=== PATIENT | male | born 1970 | race Caucasian/White ===

== ENCOUNTER 2018-06-20 12:21 | Day surgery (SDC) | payer OTHER ==
[2018-06-20] MEDS ORDERED: ceFAZolin 2 GM/DEXTROSE 100 ML IV ONE (12:29)
[2018-06-20] MEDS ORDERED: LR 1,000 ML IV ONE (12:30)
[2018-06-20] MEDS ORDERED: MIDAZOLAM 2 MG/2 ML VIAL IVP ONE (13:11)
--- NOTE | 2018-06-20 13:11 | PDANEPAE ---
ANE History of Present Illness 5th MPJ arthrotomy, cyst excision ANE Past Medical History - Cardiovascular History Hx Hypertension: No Hx Arrhythmias: No Hx Chest Pain: No Hx Coronary Artery / Peripheral Vascular Disease: No Hx CHF / Valvular Disease: No Hx Palpitations: No - Pulmonary History Hx COPD: No Hx Asthma/Reactive Airway Disease: No Hx Recent Upper Respiratory Infection: No Hx Oxygen in Use at Home: No Hx Sleep Apnea: No Sleep Apnea Screening Result - Last Documented: Negative - Neurologic History Hx Cerebrovascular Accident: No Hx Seizures: No Hx Dementia: No - Endocrine History Hx Diabetes: No - Renal History Hx Renal Disorders: No - Liver History Hx Hepatic Disorders: No - Neurological & Psychiatric Hx Hx Neurological and Psychiatric Disorders: No - Cancer History Hx Cancer: No - Congenital Disorder History Hx Congenital Disorders: No - GI History Hx Gastrointestinal Disorders: No - Other Health History Other Health History: GOUT - Chronic Pain History Chronic Pain: No - Surgical History Prior Surgeries: RT FOOT REMVL BONE SPUR ANE Review of Systems Review of systems is: negative Review of Systems: - Exercise capacity METS (RN): 6 METS ANE Patient History - Allergies Allergies/Adverse Reactions: prednisone Allergy (Verified 06/09/18 15:15) BODY/JOINT ACHING - Home Medications Home medications: home medication list seen and reviewed Home Medications: NK [No Known Home Meds] 06/09/18 [Last Taken Unknown] - NPO status NPO Since - Liquids (Date): 06/20/18 NPO Since - Liquids (Time): 09:00 NPO Since - Solids (Date): 06/19/18 NPO Since - Solids (Time): 21:00 - Anes Hx Anes Hx: no prior problems - Smoking Hx Smoking Status: Former smoker - Family Anes Hx Family Anes Hx: none ANE Labs/Vital Signs - Vital Signs Vital Signs: reviewed preoperatively; see RN documention for details Height: 175.26 cm Weight: 74.843 kg ANE Physical Exam - Airway Neck exam: FROM Mallampati Score: Class 1 Mouth exam: normal dental/mouth exam - Pulmonary Pulmonary: no respiratory distress - Cardiovascular Cardiovascular: regular rate and rhythym - ASA Status ASA Status: I ANE Anesthesia Plan Total IV Anesthesia: Yes
[2018-06-20] MEDS ORDERED: BUPIVACAINE 0.5% 30 ML SDV ONE (13:50)
--- NOTE | 2018-06-20 13:50 | PDHPUP ---
History & Physical Update H&P update statement: This history and physical update is based on an assessment of the patient which was completed after admission or registration (within 24 hours), but prior to the surgery/procedure. H&P update: H&P reviewed & patient examined, no change in patient's condition since H&P completed
[2018-06-20] MEDS ORDERED: BACITRACIN 50,000 UNITS/10 ML SYR IRR ONE (13:51)
[2018-06-20] MEDS ORDERED: PROPOFOL/EMULSION 500 MG/50 ML BOTTLE IV ONE ×2 (14:11→14:34)
[2018-06-20] MEDS ORDERED: LIDOCAINE 2% 100 MG/5 ML SYR ONE (14:11)
[2018-06-20] MEDS ORDERED: HYDROmorphONE/DILAUDID 2 MG/ML INJ IVP PRN (15:07)
[2018-06-20] MEDS ORDERED: PROMETHAZINE HCL 25 MG/ML INJ IVP PRN (15:07)
[2018-06-20] MEDS ORDERED: fentaNYL 100 MCG/2 ML INJ IVP PRN (15:07)
[2018-06-20] MEDS ORDERED: oxyCODONE IR 5 MG TAB PO PRN (15:07)
[2018-06-20] MEDS ORDERED: HYDROCODONE/APAP 5/325 TAB PO PRN (15:07)
[2018-06-20] MEDS ORDERED: ONDANSETRON 4 MG/2 ML VIAL IVP PRN ×2 (15:07→15:17)
[2018-06-20] MEDS ORDERED: MEPERIDINE 25 MG/0.5 ML AMP IVP PRN (15:07)
[2018-06-20] MEDS ORDERED: NALOXONE HCL 0.4 MG/ML INJ IVP PRN (15:07)
--- NOTE | 2018-06-20 15:07 | POSTANESTH ---
Post Anesthetic Evaluation Cardiovascular Status: Normal, Stable, Similar to Pre-Op Cond Respiratory Status: Normal, Stable, Similar to Pre-op Cond. Level of Consciousness/Mental Status: Can Participate in Eval, Moderately Sleepy Pain Control: Adequate, Prn Tx Ordered Nausea/Vomiting Control: Adequate, Prn Tx Ordered Complications Possibly Related to Anesthesia: None Noted
[2018-06-20] MEDS ORDERED: OXYCODONE/APAP 5/325 TAB PO PRN (15:17)
[2018-06-20] MEDS ORDERED: PHENYLEPHRINE HCL 100 MCG/ML SYR ONE (15:18)
[2018-06-20 18:01] VITALS: BP 130/86
--- NOTE | 2018-06-21 13:52 | GOP ---
[f rep st] OPERATIVE REPORT DATE OF OPERATION: 06/20/2018 SURGEON: Jayesh Frias DPM CEMENTER MACHINE: None. ANESTHESIA: MAC with local, 20 mL of 0.5% Marcaine plain. PREOPERATIVE DIAGNOSIS: 1. Soft tissue mass, right foot. 2. Benign bone cyst, right foot. 3. Loose body in joint, right foot. POSTOPERATIVE DIAGNOSIS: 1. Soft tissue mass, right foot. 2. Benign bone cyst, right foot. 3. Loose body in joint, right foot. PROCEDURE PERFORMED: FINDINGS: Consistent with diagnosis. SPECIMENS: Soft tissue mass, right foot sent to Pathology. ESTIMATED BLOOD LOSS: Zero. DESCRIPTION OF PROCEDURE: SURGEON: Jayesh Frias DPM. PROCEDURE: 1. Excision, soft tissue mass, right foot. 2. Curettage of bone cyst with bone graft, right foot. 3. Arthrotomy, 5th metatarsophalangeal joint with excision of loose bodies, right foot. HEMOSTASIS: Right pneumatic ankle tourniquet inflated to 250 mmHg for 32 minutes. MATERIALS: Cancellous bone chips, 3-0, 5-0 Vicryl. INJECTABLES: None. CONDITION: Stable. INDICATION FOR PROCEDURE: Patient with long-standing history of pain in the right foot. MRI demonst rates bone cyst, as well as soft tissue mass within the right foot. Patient has elected to undergo s urgical intervention at this time. PROCEDURE: After identification, patient brought to the operating room, placed on the operating tabl e in the supine position. Following IV sedation, local anesthesia obtained around the patient's righ t foot utilizing a total of 20 mL of 0.5% Marcaine plain. The foot was then scrubbed, and prepped, a nd draped in the usual aseptic manner. Pneumatic ankle tourniquet was placed around the patient's ri t ankle with ample Webril padding. Esmarch bandage utilized to exsanguinate the patient's right lo wer extremity. The pneumatic ankle tourniquet was then inflated. Attention was directed to the lateral aspect of the patient's right foot where a 4 cm linear longitud inal incision was made at the lateral aspect of the 5th metatarsophalangeal joint. This incision was deepened through the subcutaneous tissue with care being taken to identify and retract all vital brandin ral and vascular structures. Bleeders were ligated and cauterized as necessary. A large soft tissue mass measuring approximately 2 cm x 1 cm exists within the 5th metatarsophalangeal joint capsule and surrounding soft tissue. This mass is white and chalky in nature. This mass was excised completely and passed from the operative field. This will be sent to Pathology for evaluation. It is noted th at extensive joint capsule loss was sustained during excision of this soft tissue mass, which has carmen wn into the joint capsule. Attention was then directed to the 5th metatarsophalangeal joint where a linear capsulotomy was perfo rmed at the lateral aspect of the 5th metatarsophalangeal joint. Capsular structures were reflected dorsally and plantarly thus exposing the 5th metatarsophalangeal joint at the operative site. Severa l loose bodies exist within the 5th metatarsophalangeal joint, which seem to be either gouty tophi or calcium deposits. These were excised and passed from the operative field. The joint was flushed wi th normal sterile saline solution. Attention was then directed to the 5th metatarsal head through the original skin incision where a lar ge bone cyst was noted on the MRI. The lateral cortex of the 5th metatarsal head is punctured with a [place], thus exposing this large void which is filled with serous fluid. This void was then flushed with normal sterile saline solution. Cancellous bone chips were then packed into this void completel y to serve as a bone allograft. The incision was then flushed with normal sterile saline solution. Capsular structures were then closed around the 5th metatarsophalangeal joint using 3-0 Vicryl, subcu taneous tissue reapproximated using 3-0 Vicryl and skin reapproximated using 5-0 Vicryl in a running subcuticular suture technique. Incision site dressed with Steri-Strips, Miramontes silk, 4 x 4 gauze, Web ril, Najma, Wade bandage. Patient transferred to the postop recovery room with vital signs stable and vascular status intact to the right foot. Patient tolerated procedure and anesthesia well. /[id number]/MODL
== END 2018-06-20 18:14 | disposition home or self-care (01) ==
LOC: FSGY 12:21
PROVIDERS: ATTEND Podiatrist
DX: M1A.9XX1 Chronic gout, unspecified, with tophus (tophi) (principal); M85.671 Other cyst of bone, right ankle and foot; M79.9 Soft tissue disorder, unspecified; M24.08 Loose body, other site; Z87.891 Personal history of nicotine dependence
CPT/HCPCS: C1762; J0690; J2001; J2250; J2370; J2704